=== PATIENT | male | born 1990 | race Caucasian/White ===

== ENCOUNTER 2017-01-27 20:51 | Emergency (ER) | payer SELFPAY ==
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
== END 2017-01-27 21:40 | disposition home or self-care (01) ==
LOC: UCCORT 20:51
DX: S01.112D Laceration without foreign body of left eyelid and periocular area, subsequent encounter (principal); W50.0XXD Accidental hit or strike by another person, subsequent encounter; Y92.9 Unspecified place or not applicable
CPT/HCPCS: 99201; G0463